=== PATIENT | female | born 1950 | race Caucasian/White ===

== ENCOUNTER → 2017-02-07 | Outpatient (CLI) | payer MEDICARE, OTHER ==
[2015-01-21 19:34] VITALS: BP 152/86
[~2017-02-07] MED LIST: ACET325T9 PO; ALPR0.25 PO; ASPI-252 PO; ASPI325T4 PO; ASPI81TA2 PO; CETI10TA16 PO; CRESTOR10 MG PO; ESCI10TA PO; ESCI20TA PO; ESOM40CA PO; EZET10TA3 PO; FLUT9.9S NS; ISOS30TA4 PO; LISI5TAB PO; METO25TA2 PO; MULT-208 PO
== END | disposition home or self-care (01) ==
LOC: OPS 14:29
PROVIDERS: ATTEND Specialist
DX: R33.9 Retention of urine, unspecified (principal)
CPT/HCPCS: 51798

== ENCOUNTER → 2017-05-30 | Outpatient (CLI) | payer MEDICARE, OTHER ==
[2015-01-21 19:34] VITALS: BP 152/86
[~2017-05-30] MED LIST changes: +ASPI-630 PO; -ASPI325T4 PO; +ASPI325T8 PO; -ASPI81TA2 PO; -ESCI10TA PO; -ESCI20TA PO; +ESCITALOPRAM OX10 MG PO; +ESCITALOPRAM OX20 MG PO; +EZET10TA18 PO; -EZET10TA3 PO
--- NOTE | 2017-05-30 15:47 | KCIC ---
CHEST PA LATERAL History: Shortness of air, dry cough, previous smoker, history of heart attack and stent Comparison: None available at this time Findings: There is some blunting of the right costophrenic sulcus on the PA view although no dependent pleural fluid on the lateral view. Cardiac silhouette is borderline. There is fairly linear opacity at the right lung base although also somewhat nodular opacity in this region. There is no pneumothorax. No lobar consolidation is identified Impression: 1. There is blunting of the right costophrenic sulcus as seen on the PA view and also somewhat linear opacity of the right lung base, findings more likely due to pleural parenchymal fibrotic change. However there is a slightly nodular opacity in this region for which three-month radiographic follow-up is advised unless old exams can be made available for comparison. Electronically signed by: Cal Carrizales MD (05/30/2017 3:44 PM) [id number]
--- NOTE | 2017-05-30 15:51 | KCIC ---
FOOT LEFT 3V History: Left foot fracture Comparison: None. Findings: 3 views of left foot are submitted. There is somewhat displaced, post traumatic, comminuted fracture involving the mid to distal shaft of the fifth metatarsal. There is some overriding of the fracture fragments. There is plantar calcaneal enthesophyte. Impression: 1. There is somewhat comminuted and displaced fracture of the fifth metatarsal Electronically signed by: Cal Carrizales MD (05/30/2017 3:48 PM) [id number]
--- NOTE | 2017-05-30 15:53 | KCIC ---
SINUS COMPLETE 3+V History: Postnasal drainage Comparison: None. Findings: 4 views of the sinuses are submitted. No asymmetric sinus opacification is identified. Impression: 1. No asymmetric sinus opacification is identified. Electronically signed by: Cal Carrizales MD (05/30/2017 3:50 PM) [id number]
== END | disposition home or self-care (01) ==
LOC: KCIC 14:28
PROVIDERS: ATTEND Specialist
DX: S92.812A Other fracture of left foot, initial encounter for closed fracture (principal); I25.2 Old myocardial infarction; R91.8 Other nonspecific abnormal finding of lung field; R05 Cough; Z87.891 Personal history of nicotine dependence; X58.XXXA Exposure to other specified factors, initial encounter; Y93.89 Activity, other specified; Y92.89 Other specified places as the place of occurrence of the external cause; Y99.8 Other external cause status
CPT/HCPCS: 70220; 71020; 73630

== ENCOUNTER → 2017-06-01 | Outpatient (CLI) | payer MEDICARE, OTHER ==
[2015-01-21 19:34] VITALS: BP 152/86
--- NOTE | 2017-06-01 16:29 | KCIC ---
History: Left mid anterior cox lump from fall downstairs May 03, 2017. Comparison: None. Findings: Grayscale ultrasound imaging was performed of the mid anterior left lower leg in area of palpable interest. Palpable lesion corresponds to a complex fluid collection which measures 6.2 x 2.3 x 5.1 cm. This is compatible with organizing hematoma. Impression: Palpable lesion corresponds to complex fluid collection measuring 6.2 cm in maximum dimension, favored to represent hematoma. Electronically signed by: Olaf Wood MD (06/01/2017 4:26 PM) [place] [id number]
== END | disposition home or self-care (01) ==
LOC: KCIC US 14:38
PROVIDERS: ATTEND Specialist
DX: R22.42 Localized swelling, mass and lump, left lower limb (principal); W10.9XXA Fall (on) (from) unspecified stairs and steps, initial encounter
CPT/HCPCS: 76881

== ENCOUNTER → 2017-07-03 | Outpatient (CLI) | payer MEDICARE, OTHER ==
[2015-01-21 19:34] VITALS: BP 152/86
--- NOTE | 2017-07-03 10:12 | RAD ---
CT of chest without contrast. History: Chronic cough, shortness of air and wheezing. History of right lung biopsy and hysterectomy. Date of service: 07/03/17, comparison: CT chest from 01/11/15. Technique: Contiguous helical acquisitions are obtained through the chest without IV contrast. Sagittal and coronal reformatted images are obtained and reviewed. Findings: Structures at the thoracic inlet including both lobes of the thyroid appear normal. Mild atheromatous calcification of the neck vessels, aorta and coronary arteries. The heart size is within limits of normal without pericardial effusion. No dominant mediastinal or hilar adenopathy seen. Central airways patent without endoluminal lesions. Linear opacities and scarring seen in the lateral right lung base similar to previous study. No definite pulmonary nodules or masses are identified. No pleural effusion or pneumothorax. Interrogation of bone windows is unremarkable. Impression: Postoperative changes with scarring in the right lower chest. No new pulmonary nodules or masses seen. Diffuse atheromatous aortic and coronary calcification. PQRS Compliance Statement: One or more of the following individualized dose reduction techniques were utilized for this examination: 1. Automated exposure control 2. Adjustment of the mA and/or kV according to patient size 3. Use of iterative reconstruction technique
== END | disposition home or self-care (01) ==
LOC: PF 07:47
PROVIDERS: ATTEND Specialist
DX: I70.0 Atherosclerosis of aorta (principal); R06.02 Shortness of breath; R05 Cough
CPT/HCPCS: 71250; 94010; 94729

== ENCOUNTER → 2017-09-03 | Outpatient (CLI) | payer MEDICARE, OTHER ==
[2015-01-21 19:34] VITALS: BP 152/86
--- NOTE | 2017-09-05 14:39 | KCIC ---
DATE: 09/03/2017 EXAM: MAMMO SINGH SCREENING BILATERAL HISTORY: Routine screening COMPARISON: 09/01/2016 This study was interpreted with the benefit of Computerized Aided Detection (CAD). The breast parenchyma is primarily fatty replaced. Breast parenchyma level density A. FINDINGS: 2-D and 3-D tomosynthesis imaging was performed in CC and MLO projections. There is an unchanged lobulated lymph node type density in the lateral aspect of the right breast. There is an unchanged tiny smooth nodule in the medial aspect of left breast. No new or enlarging breast densities are seen. Benign type calcifications are present. No suspicious microcalcifications have developed. IMPRESSION: Stable mammograms without evidence of malignancy. BI-RADS CATEGORY: 2 BENIGN FINDING(S) RECOMMENDED FOLLOW-UP: 12M 12 MONTH FOLLOW-UP PQRS compliance statement: Patient information was entered into a reminder system with a target due date for the next mammogram. Mammography is a sensitive method for finding small breast cancers, but it does not detect them all and is not a substitute for careful clinical examination. A negative mammogram does not negate a clinically suspicious finding and should not result in delay in biopsying a clinically suspicious abnormality. "Our facility is accredited by the [employer] Mammography [employer]."
== END | disposition home or self-care (01) ==
LOC: KCIC MAMMO 14:35
PROVIDERS: ATTEND Specialist
DX: Z12.31 Encounter for screening mammogram for malignant neoplasm of breast (principal)
CPT/HCPCS: 77063; G0202; 77067

== ENCOUNTER → 2018-10-04 | Outpatient (CLI) | payer MEDICARE, OTHER ==
[2015-01-21 19:34] VITALS: BP 152/86
--- NOTE | 2018-10-04 14:52 | KCIC ---
Bilateral digital screening mammograms with 3-D tomosynthesis: Reason for examination: Routine screening. Comparison is made to previous studies dated back to 09/02/2015. Bilateral mammograms in CC and oblique projections were obtained with 2-D imaging and 3-D tomosynthesis imaging on a [employer] Inspiration unit and reviewed on the workstation. Interpretation was made with the benefit of CAD. The skin and nipples show no abnormalities. No abnormal axillary lymph nodes are seen. The breast parenchyma shows scattered fatty and fibroglandular density. (Breast density: Category B.) There continues to be a small intramammary lymph node at the 9:00 B position of the right right breast which is unchanged. There are no new dominant masses, suspicious calcifications or architectural distortion. Impression: No evidence of malignancy. Recommend routine screening. BI-RAD Category 2: Benign. "Our facility is accredited by the [employer] Mammography [employer]." This patient's information has been entered into a reminder system for the patient to be notified with the results of her examination and a target date for the next mammogram. Electronically signed by: Krista Sampson MD (10/04/2018 2:48 PM) [id number]
== END | disposition home or self-care (01) ==
LOC: KCIC MAMMO 10:52
PROVIDERS: ATTEND Specialist
DX: Z12.31 Encounter for screening mammogram for malignant neoplasm of breast (principal)
CPT/HCPCS: 77063; 77067

== ENCOUNTER → 2019-11-03 | Outpatient (CLI) | payer MEDICARE, OTHER ==
[2015-01-21 19:34] VITALS: BP 152/86
[~2019-11-03] MED LIST changes: -EZET10TA18 PO; +EZET10TA20 PO
--- NOTE | 2019-11-03 16:59 | KCIC ---
Bilateral digital screening mammograms with 3-D tomosynthesis: Reason for examination: Routine screening. Comparison is made to previous studies dated back to 09/01/2016. Bilateral mammograms in CC and oblique projections were obtained with 2-D imaging and 3-D tomosynthesis imaging on a [employer] Inspiration unit and reviewed on the workstation. Interpretation was made with the benefit of CAD. The skin and nipples show no abnormalities. No abnormal axillary lymph nodes are seen. The breast parenchyma is predominantly fatty. (Breast density: Category A.) There continues to be a small nodule consistent with an intramammary lymph node at the 9:30 B position of the right breast which is stable. There are no new dominant masses, suspicious calcifications or architectural distortion. Impression: No evidence of malignancy. Recommend routine screening. BI-RAD Category 2: Benign. "Our facility is accredited by the [employer] Mammography Program." This patient's information has been entered into a reminder system for the patient to be notified with the results of her examination and a target date for the next mammogram. Electronically signed by: Krista Sampson MD (11/03/2019 4:56 PM) [id number]
== END | disposition home or self-care (01) ==
LOC: KCIC MAMMO 15:08
PROVIDERS: ATTEND Specialist
DX: Z12.31 Encounter for screening mammogram for malignant neoplasm of breast (principal); N64.89 Other specified disorders of breast
CPT/HCPCS: 77063; 77067